=== PATIENT | male | born 1990 | race Caucasian/White ===

== ENCOUNTER 2018-10-19 11:36 | Emergency (ER) | payer OTHER ==
[~2018-10-19] VITALS: Ht 185.4 cm; Wt 90.7 kg
[2018-10-19 11:36] VITALS: BP 133/86
--- NOTE | 2018-10-19 13:20 | NUR ---
Short Leg posterior splint applied to LLE by RAFAELA Underwood. Nail Beds pink, cap refill ,3sec. Able to move/wiggle toes. Crutches dispensed. Pt for DC home ACI given and reiterated follow up with PMD/[facility] ambulatory Stable
== END 2018-10-19 13:22 | disposition home or self-care (01) ==
LOC: ER 11:43
DX: S82.832A Other fracture of upper and lower end of left fibula, initial encounter for closed fracture (principal); W01.0XXA Fall on same level from slipping, tripping and stumbling without subsequent striking against object, initial encounter; Y93.66 Activity, soccer; Y92.322 Soccer field as the place of occurrence of the external cause; Y99.8 Other external cause status
CPT/HCPCS: 29515; 73610; 99283; A4606; Z7610